=== PATIENT | female | born 1975 | race Caucasian/White ===

== ENCOUNTER 2017-06-12 21:58 | Emergency (ER) | payer MEDICAID ==
[~2017-06-12] VITALS: Ht 165.1 cm; Wt 140.6 kg
[~2017-06-12 21:58] MED LIST: AMOX-97 PO; FLUC200T45 PO; HYDR-3812 PO; IBUP800T26 PO; NAPR550T PO; OSLT75C PO; OXYC-272 PO; PRM25T PO; TRAM50TA2 PO; sprintec PO
--- NOTE | 2017-06-13 00:17 | ED Lower Extremity ---
General Chief Complaint: Lower Extremity Stated Complaint: R LEG NUMBNESS/BURNING Nursing Triage Note: PT REPORTS R HIP AND THIGH PAIN STARTING TWO DAYS AGO. PT DENIES ANY KNOWN INJURY. Nursing Sepsis Screen: No Definite Risk (EDMAR TORRES) History of Present Illness Time seen by provider: 00:12 Initial Comments Ms. Lindsey is a 42 year old female presenting with right lateral thigh numbness and burning. She has had episodes of burning and tingling of the thigh for 3-4 days; they last about 5 minutes, then go away and return frequently. The pain is 6/10 at its worst intensity and does not radiate. It has been severe enough to wake her from sleep; she has been sleeping on her left side to avoid pain. She has taken Ibuprofen which she says helps a bit. She denies any other pains, a history of this type of problem, recent injury, or any causes of compression of her thigh. Denies other pain/symptoms at this time. (EDMAR TORRES) Allergies and Home Medications Allergies Coded Allergies: NKANo Known Allergies (Unverified Allergy, Mild, 11/23/09) Home Medications Prednisone 20 Mg Tab, 20 MG PO DAILY, #4 Prescribed by: ENDER ESPINOZA on 06/13/17 0113 Constitutional: no symptoms reported EENTM: no symptoms reported Respiratory: no symptoms reported Cardiovascular: no symptoms reported Gastrointestinal: no symptoms reported Musculoskeletal: see HPI Skin: no symptoms reported (EDMAR TORRES) Psychiatric/Neurological: See HPI (ENDER SIMMONS MD) Past Plrvgsu-Yqsgtt-Tmfuzn Hx Patient Social History Alcohol Use: Denies Use Recreational Drug Use: No Smoking Status: Never a Smoker Recent Foreign Travel: No Contact w/Someone Who Travel: No Recent Infectious Disease Expo: No (EDMAR TORRES) Surgeries HX Surgeries: Yes (D&C with hysteroscopy) (EDMAR TORRES) Respiratory Hx Respiratory Disorders: No (EDMAR TORRES) Cardiovascular Hx Cardiac Disorders: No (EDMAR TORRES) Neurological Hx Neurological Disorders: No (EDMAR TORRES) Reproductive System Hx Reproductive Disorders: No (EDMAR TORRES) Genitourinary Hx Genitourinary Disorders: No (RENARD,EDMAR J MEDICAL STUDENT) Gastrointestinal Hx Gastrointestinal Disorders: No (EDMAR TORRES MEDICAL STUDENT) Endocrine Hx Endocrine Disorders: No (EDMAR TORRES MEDICAL STUDENT) HEENT HX ENT Disorders: No (EDMAR TORRES MEDICAL STUDENT) Cancer Hx Cancer: No (EDMAR TORRES MEDICAL STUDENT) Psychosocial Hx Psychiatric Problems: No (EDMAR TORRES MEDICAL STUDENT) Integumentary HX Skin/Integumentary Disorder: No (EDMAR TORRES MEDICAL HUMBERTO) Blood Transfusions Hx Blood Disorders: No (EDMAR TORRES MEDICAL STUDENT) Physical Exam Vital Signs Vital Sign - Last 12Hours 06/12/17 22:08 Temp 97.9 Pulse 98 Resp 18 B/P (MAP) 95/ Pulse Ox 97 (ENDER SIMMONS MD) Vital Signs Capillary Refill : Less Than 3 Seconds (EDMAR TORRES MEDICAL STUDENT) General Appearance: WD/WN, no apparent distress Cardiovascular: regular rate, rhythm, no gallop, no murmur Respiratory: chest non-tender, lungs clear, normal breath sounds, no respiratory distress, no accessory muscle use Gastrointestinal: normal bowel sounds, non tender, soft, no organomegaly Hips: bilateral hip non-tender, bilateral hip normal inspection, bilateral hip normal range of motion, bilateral hip no evidence of injury, right hip pain Legs: left leg non-tender, bilateral leg normal inspection, bilateral leg normal range of motion, bilateral leg no evidence of injury, right leg pain Knees: bilateral knee non-tender, bilateral knee normal inspection, bilateral knee normal range of motion, bilateral knee no evidence of injury Ankles: bilateral ankle non-tender, bilateral ankle normal inspection, bilateral ankle normal range of motion, bilateral ankle no evidence of injury Feet: bilateral foot non-tender, bilateral foot normal inspection, bilateral foot normal range of motion, bilateral foot no evidence of injury Neurologic/Psychiatric: no motor/sensory deficits, alert, normal mood/affect, oriented x 3 Skin: normal color, warm/dry (EDMAR TORRES MEDICAL STUDENT) Progress/Results/Core Measures Results/Orders Vital Signs/I&O Vital Sign - Last 12Hours 06/12/17 06/13/17 22:08 01:17 Temp 97.9 Pulse 98 0 Resp 18 0 B/P (MAP) 95/ Pulse Ox 97 0 (ENDER SIMMONS MD) Progress Note : Progress Note This patient was interviewed, seen, and examined along with Edmar Torres, MS4. I agree with his documentation with the following additions. Patient reports having this intermittent burning sensation in the right lateral thigh. It does seem to be somewhat dependent on position. Pain has been present for 3-4 days. She reports a history of chronic back pain. She has required steroid therapy in the past for treatment of this pain. She has had radicular symptoms in the past on the left, but radicular symptoms on the right are new in the description of pain is somewhat different. There was mild tenderness on the right lateral proximal thigh. No rash was present to suggest shingles. Symptoms were felt to most likely be radicular in nature. Patient was offered a short course of prednisone which she accepted. Exam: Gen.: Alert, oriented, obese HEENT: Normocephalic and atraumatic Lungs: Clear to auscultation bilaterally, normal effort Heart: Regular rate and rhythm without murmur Back: Mild tenderness to palpation over the lower lumbar spine Extremities: Right proximal lateral thigh tender to palpation. No pain with flexion or extension of the hip or rotation of the hip. No tenderness over the hip joint Skin: No rash or erythema (ENDER SIMMONS MD) Departure Impression Impression: Primary Impression: Paresthesia of right lower extremity Disposition: 01 HOME, SELF-CARE Condition: Stable Departure-Patient Inst. Decision time for Depature: 01:05 (ENDER SIMMONS MD) Referrals: ANEL IBARRA MD (PCP/Family) Primary Care Physician Patient Instructions: Paresthesias (DC) Add. Discharge Instructions: You may continue using ibuprofen up to 800 mg every 8 hours as needed for pain and inflammation. Use the prednisone as prescribed if not getting significant relief from ibuprofen. Follow-up with your primary care provider next week if not improving. Weight loss is important for reducing strain on your back and hips. Return to care if symptoms worsen. All discharge instructions reviewed with patient and/or family. Voiced understanding. Scripts Prednisone (Prednisone) 20 Mg Tab 20 MG PO DAILY, #4 TAB Prov: ENDER SIMMONS MD 06/13/17 EDMAR TORRES MEDICAL STUDENT Jun 13, 2017 00:17 ENDER SIMMONS MD Jun 13, 2017 01:13
[2017-06-13] MEDS ORDERED: PRD20T PO (01:13)
[2017-06-13 01:17] VITALS: BP 0/0
== END 2017-06-13 01:17 | disposition home or self-care (01) ==
LOC: EDUNIT# 21:58 → ER 22:00
DX: R20.2 Paresthesia of skin (principal)
CPT/HCPCS: 99283

== ENCOUNTER 2018-11-29 14:03 | Emergency (ER) | payer SELFPAY ==
[~2018-11-29] VITALS: Ht 165.1 cm; Wt 149.7 kg
[~2018-11-29 14:03] MED LIST changes: +ACHD5005 PO; -HYDR-3812 PO; +PRD20T PO
--- NOTE | 2018-11-29 14:27 | ED Lower Extremity ---
General Chief Complaint: Lower Extremity Stated Complaint: KNEE PAIN Source: patient Exam Limitations: no limitations History of Present Illness Date Seen by Provider: Nov 29, 2018 Time Seen by Provider: 14:24 Initial Comments To ER with reports of right knee pain for 2-3 days. She fell just prior to this a few days after getting out of car but did not land on her knee and had no pain initially. Over the following days she developed some knee pain. Onset: just prior to arrival Pain/Injury Location: right knee Method of Injury: fell Modifying Factors: Worse With Movement Allergies and Home Medications Allergies Coded Allergies: NKANo Known Allergies (Unverified Allergy, Mild, 11/23/09) Home Medications Prednisone 20 Mg Tab, 20 MG PO DAILY Prescribed by: ENDER ESPINOZA on 06/13/17 0113 Patient Home Medication List Home Medication List Reviewed: Yes Review of Systems Constitutional: see HPI EENTM: see HPI Respiratory: no symptoms reported Cardiovascular: no symptoms reported Genitourinary: no symptoms reported Musculoskeletal: see HPI Skin: no symptoms reported Psychiatric/Neurological: No Symptoms Reported (below the wrong finger) Past Yowomof-Ddfbes-Tigxiv Hx Past Medical History Surgeries: Yes (D&C with hysteroscopy) Respiratory: No Cardiac: No Neurological: No Reproductive Disorders: No Genitourinary: No Gastrointestinal: No Endocrine: No Cancer: No Psychosocial: No Integumentary: No Blood Disorders: No Physical Exam Vital Signs Vital Signs - First Documented 11/29/18 14:10 Temp 97.9 Pulse 76 Resp 18 B/P (MAP) 183/144 (157) Pulse Ox 99 O2 Delivery Room Air Capillary Refill : Height, Weight, BMI Height: 5'5.00" Weight: 310lbs. 2.0oz. 140.803372la; 56.4 BMI Method:Stated General Appearance: WD/WN, no apparent distress, obese HEENT: PERRL/EOMI, normal ENT inspection Neck: non-tender, full range of motion Respiratory: no respiratory distress, no accessory muscle use Hips: bilateral hip non-tender, bilateral hip normal inspection, bilateral hip normal range of motion Legs: bilateral leg non-tender, bilateral leg normal inspection, bilateral leg normal range of motion Knees: left knee pain, left knee soft tissue tenderness Ankles: bilateral ankle non-tender, bilateral ankle normal inspection, bilateral ankle normal range of motion Neurologic/Psychiatric: alert, normal mood/affect, oriented x 3 Skin: normal color, warm/dry Progress/Results/Core Measures Results/Orders My Orders Orders - JONATHAN HERRERA APRN Ketorolac Injection (Toradol Injection) (11/29/18 14:30) Amlodipine Tablet (Norvasc Tablet) (11/29/18 14:30) Knee, Right, 3 Views (11/29/18 14:23) Medications Given in ED Current Medications Medications Dose Ordered Sig/Jannet Route Start Time Stop Time Status Last Admin Dose Admin Amlodipine Besylate 5 mg ONCE ONCE PO 11/29/18 14:30 11/29/18 14:31 DC 11/29/18 14:30 5 MG Ketorolac Tromethamine 60 mg ONCE ONCE IM 11/29/18 14:30 11/29/18 14:31 DC 11/29/18 14:30 60 MG Vital Signs/I&O 11/29/18 14:10 Temp 97.9 Pulse 76 Resp 18 B/P (MAP) 183/144 (157) Pulse Ox 99 O2 Delivery Room Air Departure Impression Primary Impression: Sprain of knee Qualified Codes: S83.92XA - Sprain of unspecified site of left knee, initial encounter Additional Impression: Hypertension Qualified Codes: I10 - Essential (primary) hypertension Disposition: 01 HOME, SELF-CARE Condition: Stable Departure-Patient Inst. Decision time for Depature: 14:26 Referrals: ANEL IBARRA MD (PCP/Family) Primary Care Physician Patient Instructions: High Blood Pressure (DC), Knee Sprain (DC) Add. Discharge Instructions: 1. Follow-up with your doctor to address your knee pain. Return to ER for any worsening. All discharge instructions reviewed with patient and/or family. Voiced understanding. Scripts Naproxen (Naprosyn) 500 Mg Tablet 500 MG PO BID PRN for PAIN-MODERATE TO SEVERE, #14 TAB Prov: JONATHAN HERRERA APRN 11/29/18 JONATHAN HERRERA APRN Nov 29, 2018 14:27
[2018-11-29] MEDS ORDERED: KETOROLAC 60 MG/2 ML VIAL IM ONE (14:30)
[2018-11-29] MEDS ORDERED: amLODIPine 5 MG (NORVASC) TAB PO ONE (14:30)
--- NOTE | 2018-11-29 14:51 | Diagnostic Imaging Report ---
INDICATION: Pain and inability to bear weight on the right knee. TIME OF EXAM: 2:36 p.m. EXAMINATION: Three views of the right knee were obtained. FINDINGS: Alignment is normal. There is chondrocalcinosis of the medial and lateral compartments. Articular surfaces are smooth. No fracture, dislocation or effusion is seen. There are some mild patellofemoral degenerative changes. IMPRESSION: Chronic changes. No acute bony abnormality is detected. Dictated by: Dictated on workstation # [id number]
[2018-11-29] MEDS ORDERED: NAPR-1071 PO (14:58)
[2018-11-29 15:10] VITALS: BP 197/100
== END 2018-11-29 15:15 | disposition home or self-care (01) ==
LOC: EDUNIT# 14:03 → ER 14:04
DX: S83.92XA Sprain of unspecified site of left knee, initial encounter (principal); I10 Essential (primary) hypertension; Z79.52 Long term (current) use of systemic steroids; W19.XXXA Unspecified fall, initial encounter
CPT/HCPCS: 73562

== ENCOUNTER 2019-08-28 10:24 | Emergency (ER) | payer SELFPAY ==
[~2019-08-28] VITALS: Ht 165 cm; Wt 162.0 kg
[~2019-08-28 10:24] MED LIST changes: +NAPR-1071 PO
--- NOTE | 2019-08-28 10:49 | ED Cough/URI ---
General Chief Complaint: Cough/Cold/Flu Symptoms Stated Complaint: COUGH Nursing Triage Note: PT CO OF COLD COUGH AND FLU TYPE SX Sepsis Screen: No Definite Risk Source: patient Exam Limitations: no limitations History of Present Illness Date Seen by Provider: Aug 28, 2019 Time Seen by Provider: 10:35 Initial Comments Patient presents to ER by private conveyance with chief complaint of 2 weeks of cough, fever or 4 days ago and mild shortness of breath on exertion. No history of lung disease heart disease etc. No past medical history or taking any medications routinely. She saw her doctor who a week ago and put on Tessalon Perles which she said did not help. She's tried Robitussin another dymx-mjl-ynsqlys cough medicines. No sore throat runny nose ears underwater. No diarrhea. Allergies and Home Medications Allergies Coded Allergies: Wayne Known Allergies (Unverified Allergy, Mild, 11/23/09) Home Medications Albuterol Sulfate 1 Puff Puff, 2 PUFF INH Q4H PRN for COUGH 1 PUFF = 90 MCG Prescribed by: SHER HODGE on 08/28/19 1050 Azithromycin 250 Mg Tablet, 250 MG PO UD TAKE 2 TABLETS ON DAY ONE THEN TAKE 1 TABLET DAILY FOR FOUR MORE DAYS Prescribed by: SHER HODGE on 08/28/19 1127 Cefdinir 300 Mg Capsule, 300 MG PO BID Prescribed by: SHER HODGE on 08/28/19 1127 Guaifenesin/Codeine Phosphate 473 Ml Liquid, 10 ML PO Q6H PRN for COUGH Prescribed by: SHER HODGE on 08/28/19 1050 Naproxen 500 Mg Tablet, 500 MG PO BID PRN for PAIN-MODERATE TO SEVERE Prescribed by: JONATHAN HERRERA on 11/29/18 1458 Prednisone 20 Mg Tab, 20 MG PO DAILY Prescribed by: ENDRE ESPINOZA on 06/13/17 0113 Patient Home Medication List Home Medication List Reviewed: Yes Review of Systems Review of Systems Constitutional: chills, fever, malaise EENTM: No ear discharge, No ear pain Respiratory: cough; No phlegm; short of breath; No wheezing Cardiovascular: No chest pain, No edema Gastrointestinal: No abdominal pain, No constipation, No diarrhea Genitourinary: No discharge, No dysuria Past Qrrkeqc-Iooltc-Wrjdoa Hx Patient Social History Alcohol Use: Denies Use Recreational Drug Use: No Smoking Status: Never a Smoker 2nd Hand Smoke Exposure: No Recent Foreign Travel: No Contact w/Someone Who Travel: No Recent Infectious Disease Expo: No Recent Hopitalizations: No Physical Abuse: No Sexual Abuse: No Immunizations Up To Date Date of Influenza Vaccine: Aug 14, 2019 Past Medical History Surgeries: Yes (D&C with hysteroscopy) Respiratory: No Cardiac: No Neurological: No : No (IRREGULAR PERIODS) Reproductive Disorders: No Genitourinary: No Gastrointestinal: No Endocrine: No Cancer: No Psychosocial: No Integumentary: No Blood Disorders: No Physical Exam Vital Signs - First Documented 08/28/19 08/28/19 10:30 10:41 Temp 36.7 Pulse 104 Resp 18 B/P (MAP) 146/120 (129) Pulse Ox 97 O2 Delivery Room Air Capillary Refill : Less Than 3 Seconds Height: 5'5.00" Weight: 330lbs. 0oz. 149.872759xq; 59.00 BMI Method:Stated General Appearance: WD/WN, mild distress Eyes: Bilateral Eye Normal Inspection, Bilateral Eye PERRL, Bilateral Eye EOMI HEENT: PERRL/EOMI, pharynx normal Neck: non-tender, full range of motion Respiratory: lungs clear, normal breath sounds, no respiratory distress, no accessory muscle use, decreased breath sounds, other (nonproductive cough) Cardiovascular: normal peripheral pulses, regular rate, rhythm, tachycardia (100) Progress/Results/Core Measures Suspected Sepsis Recent Fever Within 48 Hours: No Infection Criteria Present: None New/Unexplained Altered Menta: No Sepsis Screen: No Definite Risk SIRS Temperature: Pulse: 104 Respiratory Rate: 18 Laboratory Tests 08/28/19 10:50: White Blood Count 8.7 Blood Pressure 146 /120 Mean: 129 Laboratory Tests 08/28/19 10:50: Creatinine 0.76, Platelet Count 338 Results/Orders Lab Results Laboratory Tests Test 08/28/19 10:50 Range/Units White Blood Count 8.7 4.3-11.0 10^3/uL Red Blood Count 4.64 4.35-5.85 10^6/uL Hemoglobin 13.5 11.5-16.0 G/DL Hematocrit 41 35-52 % Mean Corpuscular Volume 89 80-99 FL Mean Corpuscular Hemoglobin 29 25-34 PG Mean Corpuscular Hemoglobin Concent 33 32-36 G/DL Red Cell Distribution Width 14.3 10.0-14.5 % Platelet Count 338 130-400 10^3/uL Mean Platelet Volume 10.3 7.4-10.4 FL Neutrophils (%) (Auto) 71 42-75 % Lymphocytes (%) (Auto) 19 12-44 % Monocytes (%) (Auto) 7 0-12 % Eosinophils (%) (Auto) 2 0-10 % Basophils (%) (Auto) 1 0-10 % Neutrophils # (Auto) 6.2 1.8-7.8 X 10^3 Lymphocytes # (Auto) 1.6 1.0-4.0 X 10^3 Monocytes # (Auto) 0.6 0.0-1.0 X 10^3 Eosinophils # (Auto) 0.2 0.0-0.3 10^3/uL Basophils # (Auto) 0.1 0.0-0.1 10^3/uL Sodium Level 136 135-145 MMOL/L Potassium Level 3.8 3.6-5.0 MMOL/L Chloride Level 107 98-107 MMOL/L Carbon Dioxide Level 21 21-32 MMOL/L Anion Gap 8 5-14 MMOL/L Blood Urea Nitrogen 11 7-18 MG/DL Creatinine 0.76 0.60-1.30 MG/DL Estimat Glomerular Filtration Rate > 60 BUN/Creatinine Ratio 14 Glucose Level 119 H 70-105 MG/DL Calcium Level 9.3 8.5-10.1 MG/DL C-Reactive Protein High Sensitivity 3.78 H 0.00-0.50 MG/DL My Orders Orders - SHER HODGE Influenza A And B Antigens (08/28/19 10:37) Chest Pa/Lat (2 View) (08/28/19 10:41) Cbc With Automated Diff (08/28/19 10:41) Basic Metabolic Panel (08/28/19 10:41) Hs C Reactive Protein (08/28/19 10:41) Vital Signs/I&O 08/28/19 08/28/19 10:30 10:41 Temp 36.7 Pulse 104 Resp 18 B/P (MAP) 146/120 (129) Pulse Ox 97 O2 Delivery Room Air Capillary Refill : Less Than 3 Seconds Blood Pressure Mean: 129 Progress Note : Time: 10:46 Progress Note Basic labs, influenza and chest x-ray. Viral bronchitis/upper respiratory tract infection versus pneumonia given his been going on for 2 weeks with fever. She is afebrile presently. We did try putting her on bronchodilator for her cough as well as codeine. Diagnostic Imaging Diagonstic Imaging: Xray Plain Films/CT/US/NM/MRI: chest (1v) Comments NAME: DEJAN ALEXANDER [facility] REC#: [id number] PT STATUS: REG ER : 1975 PHYSICIAN: SHER HODGE MD ADMIT DATE: 08/28/19/ER Draft Date of Exam:08/28/19 CHEST PA/LAT (2 VIEW) INDICATION: Cough. TIME OF EXAM: 10:58 AM No prior studies are available for comparison. FINDINGS: The heart size is normal. There is some mild fullness in the right perihilar region. Perihilar infiltrate is suspected. No parenchymal consolidation is seen. There is no effusion or pneumothorax. IMPRESSION: Findings suspect for mild right perihilar pneumonia. Dictated on workstation # [id number] Dict: 08/28/19 1116 Trans: 08/28/19 [facility]3 [id number] Interpreted by: CHILO BHATTI MD Electronically signed by: Reviewed: Reviewed by Me Departure Impression Primary Impression: Pneumonia Qualified Codes: J18.1 - Lobar pneumonia, unspecified organism Disposition: 01 HOME, SELF-CARE Condition: Stable Departure-Patient Inst. Decision time for Depature: 11:26 Referrals: [facility] (PCP) Primary Care Physician Patient Instructions: Pneumonia, Adult (DC) Add. Discharge Instructions: 2 puffs of albuterol every 4 hours as needed for coughing or wheezing/shortness of breath. Cough syrup every 6 hours as needed for breakthrough coughing. Drink plenty of fluids and use humidifiers, vapor rubs, hot tea with honey and lemon etc. All discharge instructions reviewed with patient and/or family. Voiced understanding. Scripts Azithromycin (Azithromycin) 250 Mg Tablet 250 MG PO UD, #6 TAB 0 Refills TAKE 2 TABLETS ON DAY ONE THEN TAKE 1 TABLET DAILY FOR FOUR MORE DAYS Prov: SHER HODGE 08/28/19 Cefdinir (Cefdinir) 300 Mg Capsule 300 MG PO BID for 7 Days, #14 CAP 0 Refills Prov: SHER HODGE 08/28/19 Inhaler, Assist Devices (E-Z Spacer) 1 Each Spacer EACH MC for Cough, #1 Prov: SHER HODGE 08/28/19 Albuterol Sulfate (VENTOLIN HFA) 1 Puff Puff 2 PUFF INH Q4H PRN for COUGH, #1 EA 0 Refills 1 PUFF = 90 MCG Prov: SHER HODGE 08/28/19 Guaifenesin/Codeine Phosphate (Guaifenesin-Codeine Syrup) 473 Ml Liquid 10 ML PO Q6H PRN for COUGH, #473 EA 0 Refills Prov: SHER HODGE 08/28/19 SHER HODGE Aug 28, 2019 10:49
[2019-08-28] MEDS ORDERED: GUAI473L PO (10:50)
[2019-08-28] MEDS ORDERED: INHA1INH59 MC (10:50)
[2019-08-28] MEDS ORDERED: RT-ALBUINH INH (10:50)
[2019-08-28 10:58] LABS: BASOPHILS # (AUTO) 0.1 10^3/uL (0.0-0.1); BASOPHILS % (AUTO) 1 % (0-10); EOSINOPHILS # (AUTO) 0.2 10^3/uL (0.0-0.3); EOSINOPHILS % (AUTO) 2 % (0-10); HEMATOCRIT 41 % (35-52); HEMOGLOBIN 13.5 G/DL (11.5-16.0); LYMPHOCYTES # (AUTO) 1.6 X 10^3 (1.0-4.0); LYMPHOCYTES % (AUTO) 19 % (12-44); MEAN CORPUSCULAR HEMOGLOBIN 29 PG (25-34); MEAN CORPUSCULAR HGB CONC 33 G/DL (32-36); MEAN CORPUSCULAR VOLUME 89 FL (80-99); MEAN PLATELET VOLUME 10.3 FL (7.4-10.4); MONOCYTES # (AUTO) 0.6 X 10^3 (0.0-1.0); MONOCYTES % (AUTO) 7 % (0-12); NEUTROPHILS # (AUTO) 6.2 X 10^3 (1.8-7.8); NEUTROPHILS % (AUTO) 71 % (42-75); PLATELET COUNT 338 10^3/uL (130-400); RED CELL DISTRIBUTION WIDTH 14.3 % (10.0-14.5); WHITE BLOOD COUNT 8.7 10^3/uL (4.3-11.0)
[2019-08-28 11:16] LABS: BUN/CREATININE RATIO 14; CALCIUM 9.3 MG/DL (8.5-10.1); CARBON DIOXIDE 21 MMOL/L (21-32); CHLORIDE 107 MMOL/L (98-107); CREATININE SERUM 0.76 MG/DL (0.60-1.30); GFR ESTIMATED > 60; GLUCOSE 119 MG/DL (70-105); POTASSIUM 3.8 MMOL/L (3.6-5.0); SODIUM 136 MMOL/L (135-145)
--- NOTE | 2019-08-28 11:23 | Diagnostic Imaging Report ---
INDICATION: Cough. TIME OF EXAM: 10:58 AM No prior studies are available for comparison. FINDINGS: The heart size is normal. There is some mild fullness in the right perihilar region. Perihilar infiltrate is suspected. No parenchymal consolidation is seen. There is no effusion or pneumothorax. IMPRESSION: Findings suspect for mild right perihilar pneumonia. Dictated by: Dictated on workstation # [id number]
[2019-08-28] MEDS ORDERED: CEFD300C3 PO (11:27)
[2019-08-28] MEDS ORDERED: AZIT250T12 PO (11:27)
[2019-08-28 11:53] VITALS: BP 146/120
== END 2019-08-28 11:53 | disposition home or self-care (01) ==
LOC: EDUNIT# 10:24 → ER 10:26
DX: J18.9 Pneumonia, unspecified organism (principal); Z79.52 Long term (current) use of systemic steroids
CPT/HCPCS: 36415; 71046; 80048; 85025; 86141; 87804

== ENCOUNTER 2021-06-02 17:00 | Emergency (ER) | payer SELFPAY ==
[~2021-06-02] VITALS: Ht 165 cm; Wt 172.0 kg
[~2021-06-02 17:00] MED LIST changes: +AZIT250T12 PO; +CEFD300C3 PO; +GUAI473L PO; +INHA1INH59 MC; +RT-ALBUINH INH
[2021-06-02] MEDS ORDERED: fentaNYL INJ 100 MCG/2 ML AMP IVP ONE (18:00)
[2021-06-02] MEDS ORDERED: KETOROLAC 30 MG/ML VIAL IVP ONE (18:00)
[2021-06-02] MEDS ORDERED: NS IV 1000 ML 1,000 ML IV SCH (18:00)
--- NOTE | 2021-06-02 18:02 | ED Respiratory ---
General Chief Complaint: Respiratory Problems Stated Complaint: SOB, WEAKNESS IN LEGS Nursing Triage Note: PT PRESENTS TO ED FOR SHORTNESS OF BREATH AND BILATERAL LEG PAIN X'S THREE DAYS. PER PT SHE DID A HOME COVID TEST AND IT SHOWED POSITIVE. PT IS CONCERNED BLOOD CLOTS RUN IN HER FAMILY AND ITS THE BACK OF HER LEGS THAT HURT. PT AMB. TO ROOM 07 WITH MILD SHORTNESS OF BREATH. PT IS ALSO STATING SHE IS HAVING CHEST PRESSURE LIKE WHEN SHE HAD PNEUMONIA. Source: patient Exam Limitations: no limitations History of Present Illness Date Seen by Provider: Jun 02, 2021 Time Seen by Provider: 19:06 Initial Comments to ER with general weakness in her legs shortness of breath and pressure in her chest. Symptoms began on Sunday05/29/21. She received her first Pfizer vaccine on 05/25/2021 Timing/Duration: constant Severity: moderate Associated Symptoms: cough, shortness of breath Allergies and Home Medications Allergies Coded Allergies: NKANo Known Allergies (Unverified Allergy, Mild, 11/23/09) Home Medications Albuterol Sulfate 1 Puff Puff, 2 PUFF INH Q4H PRN for COUGH 1 PUFF = 90 MCG Prescribed by: SHER HODGE on 08/28/19 1050 Azithromycin 250 Mg Tablet, 250 MG PO UD TAKE 2 TABLETS ON DAY ONE THEN TAKE 1 TABLET DAILY FOR FOUR MORE DAYS Prescribed by: SHER HODGE on 08/28/19 1127 Cefdinir 300 Mg Capsule, 300 MG PO BID Prescribed by: SHER HODGE on 08/28/19 1127 Guaifenesin/Codeine Phosphate 473 Ml Liquid, 10 ML PO Q6H PRN for COUGH Prescribed by: SHER HODGE on 08/28/19 1050 Naproxen 500 Mg Tablet, 500 MG PO BID PRN for PAIN-MODERATE TO SEVERE Prescribed by: JONATHAN HERRERA on 11/29/18 1458 Prednisone 20 Mg Tab, 20 MG PO DAILY Prescribed by: ENDER ESPINOZA on 06/13/17 0113 Patient Home Medication List Home Medication List Reviewed: Yes Review of Systems Review of Systems Constitutional: see HPI EENTM: see HPI Respiratory: no symptoms reported Cardiovascular: no symptoms reported Genitourinary: no symptoms reported Musculoskeletal: no symptoms reported Skin: no symptoms reported Psychiatric/Neurological: No Symptoms Reported Hematologic/Lymphatic: No Symptoms Reported Immunological/Allergic: no symptoms reported Past Pihvfht-Rvryxf-Pyqnxk Hx Patient Social History Tobacco Use?: No Substance use?: Yes Substance type: Marijuana Substance frequency: Couple times a week Alcohol Use?: No Pt feels they are or have been: No Immunizations Up To Date First/Initial COVID19 Vaccinat: 05/25/2021 COVID19 Vaccine Appeals Officer: PFIZER Past Medical History Surgeries: Yes (D&C with hysteroscopy) Respiratory: No Cardiac: No Neurological: No Reproductive Disorders: No Genitourinary: No Gastrointestinal: No Endocrine: No Cancer: No Psychosocial: No Integumentary: No Blood Disorders: No Physical Exam Vital Signs - First Documented 06/02/21 17:31 Temp 37.3 Pulse 104 Resp 22 B/P (MAP) 141/101 (114) O2 Delivery Room Air Capillary Refill : Less Than 3 Seconds Height: 5'5.00" Weight: 330lbs. 0oz. 149.193927hc; 63.00 BMI Method:Stated General Appearance: WD/WN, obese, other (No distress alert and oriented very pleasant normal respiratory rate oxygen saturation 97 to 99% on room air. Morbidly obese at BMI of 63. Because of this I discussed with her getting Regeneron infusion tomorrow. She would like to proceed with getting this. I discussed with her the emergency use authorization nature of it and she would still like to proceed. ) Eyes: Bilateral Eye Normal Inspection, Bilateral Eye PERRL, Bilateral Eye EOMI HEENT: PERRL/EOMI, normal ENT inspection Neck: non-tender, full range of motion Respiratory: normal breath sounds, no respiratory distress, no accessory muscle use Cardiovascular: regular rate, rhythm, no murmur Gastrointestinal: normal bowel sounds, non tender, soft Neurologic/Psychiatric: alert, normal mood/affect, oriented x 3 Skin: normal color, warm/dry Progress/Results/Core Measures Suspected Sepsis SIRS Temperature: Pulse: 104 Respiratory Rate: 22 Laboratory Tests 06/02/21 18:03: White Blood Count 5.2 Blood Pressure 141 /101 Mean: 114 Laboratory Tests 06/02/21 18:03: Creatinine 0.89, Platelet Count 300, Total Bilirubin 0.4 Results/Orders Lab Results Laboratory Tests Test 06/02/21 17:34 06/02/21 18:03 Range/Units SARS-CoV-2 RNA (RT-PCR) Detected H Not Detecte White Blood Count 5.2 4.3-11.0 10^3/uL Red Blood Count 4.57 3.80-5.11 10^6/uL Hemoglobin 13.9 11.5-16.0 g/dL Hematocrit 43 35-52 % Mean Corpuscular Volume 93 80-99 fL Mean Corpuscular Hemoglobin 30 25-34 pg Mean Corpuscular Hemoglobin Concent 33 32-36 g/dL Red Cell Distribution Width 14.5 10.0-14.5 % Platelet Count 300 130-400 10^3/uL Mean Platelet Volume 10.2 9.0-12.2 fL Immature Granulocyte % (Auto) 0 % Neutrophils (%) (Auto) 60 42-75 % Lymphocytes (%) (Auto) 31 12-44 % Monocytes (%) (Auto) 8 0-12 % Eosinophils (%) (Auto) 1 0-10 % Basophils (%) (Auto) 1 0-10 % Neutrophils # (Auto) 3.1 1.8-7.8 10^3/uL Lymphocytes # (Auto) 1.6 1.0-4.0 10^3/uL Monocytes # (Auto) 0.4 0.0-1.0 10^3/uL Eosinophils # (Auto) 0.0 0.0-0.3 10^3/uL Basophils # (Auto) 0.0 0.0-0.1 10^3/uL Immature Granulocyte # (Auto) 0.0 0.0-0.1 10^3/uL D-Dimer 1.12 H 0.00-0.49 UG/ML Sodium Level 140 135-145 MMOL/L Potassium Level 3.7 3.6-5.0 MMOL/L Chloride Level 105 98-107 MMOL/L Carbon Dioxide Level 24 21-32 MMOL/L Anion Gap 11 5-14 MMOL/L Blood Urea Nitrogen 10 7-18 MG/DL Creatinine 0.89 0.60-1.30 MG/DL Estimat Glomerular Filtration Rate > 60 BUN/Creatinine Ratio 11 Glucose Level 103 70-105 MG/DL Calcium Level 8.5 8.5-10.1 MG/DL Corrected Calcium 8.7 8.5-10.1 MG/DL Magnesium Level 2.0 1.6-2.4 MG/DL Total Bilirubin 0.4 0.1-1.0 MG/DL Aspartate Amino Transf (AST/SGOT) 60 H 5-34 U/L Alanine Aminotransferase (ALT/SGPT) 113 H 0-55 U/L Alkaline Phosphatase 55 40-136 U/L C-Reactive Protein High Sensitivity 0.50 0.00-0.50 MG/DL B-Type Natriuretic Peptide < 10.0 <100.0 PG/ML Total Protein 7.5 6.4-8.2 GM/DL Albumin 3.8 3.2-4.5 GM/DL Serum Test, Qualitative NEGATIVE NEGATIVE My Orders Orders - JONATHAN HERRERA APRN Covid 19 Inhouse Test (06/02/21 17:34) Cbc With Automated Diff (06/02/21 17:34) Hs C Reactive Protein (06/02/21 17:34) Fibrin Degradation Products (06/02/21 17:34) Comprehensive Metabolic Panel (06/02/21 17:34) BNP (06/02/21 17:34) Magnesium (06/02/21 17:34) Ed Iv/Invasive Line Start (06/02/21 17:34) Hcg,Qualitative Serum (06/02/21 17:34) Ns Iv 1000 Ml (Sodium Chloride 0.9%) (06/02/21 18:00) Ketorolac Injection (Toradol Injection) (06/02/21 18:00) Fentanyl Inj (Sublimaze Injection) (06/02/21 18:00) Ua Culture If Indicated (06/02/21 17:48) Ct Angio Chest W (06/02/21 18:56) Iohexol Injection (Omnipaque 350 Mg/Ml 1 (06/02/21 19:15) Received Contrast (Hold Metformin- Contr (06/02/21 19:15) Sodium Chloride Flush (Catheter Flush Sy (06/02/21 19:15) Ns (Ivpb) (Sodium Chloride 0.9% Ivpb Bag (06/02/21 19:15) Ondansetron Injection (Zofran Injectio (06/02/21 20:00) Medications Given in ED Current Medications Medications Dose Ordered Sig/Jannet Route Start Time Stop Time Status Last Admin Dose Admin Iohexol 100 ml ONCE ONCE IV 06/02/21 19:15 06/02/21 19:16 DC 06/02/21 19:49 88 ML Ondansetron HCl 4 mg STK-MED ONCE .ROUTE 06/02/21 20:00 06/02/21 20:03 DC 06/02/21 20:03 8 MG Sodium Chloride 10 ml NEEDED PRN IV 06/02/21 19:15 06/02/21 19:49 10 ML Sodium Chloride 100 ml ONCE ONCE IV 06/02/21 19:15 06/02/21 19:16 DC 06/02/21 19:49 80 ML Vital Signs/I&O 06/02/21 17:31 Temp 37.3 Pulse 104 Resp 22 B/P (MAP) 141/101 (114) O2 Delivery Room Air Capillary Refill : Less Than 3 Seconds Blood Pressure Mean: 114 Departure Communication (Admissions) CT shows mild mediastinal lymphadenopathy no pulmonary embolism. I have arranged for her to receive Regeneron tomorrow Impression Primary Impression: COVID-19 Disposition: 01 HOME, SELF-CARE Condition: Stable Departure-Patient Inst. Decision time for Depature: 19:08 Referrals: [facility] [place] (PCP) Primary Care Physician ANEL IBARRA MD (Family) Primary Care Physician Patient Instructions: COVID-19 ED Add. Discharge Instructions: 1. Take a baby aspirin daily. The hospital will call you tomorrow morning with a time at which you should arrive for the Regeneron infusion. All discharge instructions reviewed with patient and/or family. Voiced understanding. JONATHAN HERRERA APRN Jun 02, 2021 18:02
[2021-06-02 18:22] LABS: BASOPHILS % (AUTO) 1 % (0-10); EOSINOPHILS % (AUTO) 1 % (0-10); HEMATOCRIT 43 % (35-52); HEMOGLOBIN 13.9 g/dL (11.5-16.0); LYMPHOCYTES # (AUTO) 1.6 10^3/uL (1.0-4.0); LYMPHOCYTES % (AUTO) 31 % (12-44); MEAN CORPUSCULAR HEMOGLOBIN 30 pg (25-34); MEAN CORPUSCULAR HGB CONC 33 g/dL (32-36); MEAN CORPUSCULAR VOLUME 93 fL (80-99); MEAN PLATELET VOLUME 10.2 fL (9.0-12.2); MONOCYTES # (AUTO) 0.4 10^3/uL (0.0-1.0); MONOCYTES % (AUTO) 8 % (0-12); NEUTROPHILS # (AUTO) 3.1 10^3/uL (1.8-7.8); NEUTROPHILS % (AUTO) 60 % (42-75); PLATELET COUNT 300 10^3/uL (130-400); WHITE BLOOD COUNT 5.2 10^3/uL (4.3-11.0)
[2021-06-02 18:32] LABS: ALBUMIN 3.8 GM/DL (3.2-4.5); CHLORIDE 105 MMOL/L (98-107); POTASSIUM 3.7 MMOL/L (3.6-5.0); SODIUM 140 MMOL/L (135-145)
[2021-06-02 18:33] LABS: CALCIUM 8.5 MG/DL (8.5-10.1)
[2021-06-02 18:34] LABS: GLUCOSE 103 MG/DL (70-105); TOTAL PROTEIN 7.5 GM/DL (6.4-8.2)
[2021-06-02 18:35] LABS: CARBON DIOXIDE 24 MMOL/L (21-32)
[2021-06-02 18:36] LABS: BILIRUBIN,TOTAL 0.4 MG/DL (0.1-1.0)
[2021-06-02 18:38] LABS: ALKALINE PHOSPHATASE 55 U/L (40-136); CREATININE SERUM 0.89 MG/DL (0.60-1.30); GFR ESTIMATED > 60
[2021-06-02 18:39] LABS: BUN/CREATININE RATIO 11
[2021-06-02 18:41] LABS: ALANINE AMINOTRANSFERASE 113 U/L (0-55)
[2021-06-02] MEDS ORDERED: IOHEXOL 350 MG/ML 100 ML (OMNIPAQUE 350) VIAL IV ONE (19:15)
[2021-06-02] MEDS ORDERED: NS 100 ML (IVPB) BAG IV ONE (19:15)
[2021-06-02] MEDS ORDERED: CATHETER FLUSH 10 ML SYR IV PRN (19:15)
[2021-06-02] MEDS ORDERED: HOLD METFORMIN - RECEIVED CONTRAST 20 ML VIAL IV SCH (19:15)
[2021-06-02] MEDS ORDERED: ONDANSETRON 4 MG/2 ML (SDV) Z0FRAN ONE (20:00)
--- NOTE | 2021-06-02 21:07 | Diagnostic Imaging Report ---
Clinical indication: Patient Covid positive with elevated d-dimer. Exam: CT angiogram of the chest performed with 88 cc Omnipaque 350 IV contrast. Coronal and oblique MIP images of the vasculature were created to better evaluate anatomy. Auto Exposure Controls were utilized during the CT exam to meet ALARA standards for radiation dose reduction. Comparison: Chest x-ray dated 08/28/2019. Findings: There is no evidence of pulmonary embolism. There is no thoracic aortic dissection or aneurysm. Lungs are clear. There is no pleural effusion pneumothorax. Mildly prominent lymph nodes in the mediastinal region. Marker lymph node in the precarinal region measures roughly 11 mm x 23 mm in AP x transverse dimensions. There is no significant lymphadenopathy in the hilar or axillary regions. Mediastinal structures and heart shows no significant abnormality. The visualized portions of the upper abdominal structures are unremarkable. There are hypertrophic spurs involving the thoracic spine. Impression: 1: Nonspecific prominent mediastinal lymph nodes. Lungs are clear. 2: Otherwise unremarkable CT angiogram of the chest with no evidence of pulmonary embolism. There is no thoracic aortic aneurysm or dissection. Dictated by: Dictated on workstation # [id number]
[2021-06-02 21:20] VITALS: BP 135/100
== END 2021-06-02 21:20 | disposition home or self-care (01) ==
LOC: EDUNIT# 17:00 → ER 17:02
DX: U07.1 COVID-19 (principal); R59.0 Localized enlarged lymph nodes; E66.9 Obesity, unspecified; Z68.44 Body mass index [BMI] 60.0-69.9, adult
CPT/HCPCS: 36415; 71275; 80053; 83735; 83880; 84703; 85025; 85379; 86141; 87636

== ENCOUNTER 2021-06-03 12:12 | Outpatient (CLI) | payer SELFPAY ==
[~2021-06-03] VITALS: Ht 167.6 cm; Wt 177.8 kg
[2021-06-03 12:05] VITALS: BP 160/82
[2021-06-03] MEDS ORDERED: CASIRIVIMAB/IMDEVIMAB 1,200 MG in NS (IVPB) 250 ML IV ONE (12:30)
[2021-06-03] MEDS ORDERED: EPINEPHrine INJECTION 1 MG/ML AMP IM PRN (12:30)
[2021-06-03] MEDS ORDERED: diphenhydrAMINE 50 MG/ML INJ (BENADRYL) IV PRN (12:30)
[2021-06-03 13:48] VITALS: BP 173/97
== END 2021-06-03 14:43 ==
LOC: INFUSION 12:12
PROVIDERS: ATTEND Nurse Practitioner Family
DX: Z23 Encounter for immunization (principal); U07.1 COVID-19

== ENCOUNTER 2022-11-22 17:30 | Emergency (ER) | payer OTHER ==
[~2022-11-22] VITALS: Ht 167 cm; Wt 187.3 kg
[2022-11-22 18:33] LABS: BASOPHILS # (AUTO) 0.1 10^3/uL (0.0-0.1); BASOPHILS % (AUTO) 1 % (0-10); EOSINOPHILS # (AUTO) 0.1 10^3/uL (0.0-0.3); EOSINOPHILS % (AUTO) 2 % (0-10); HEMATOCRIT 37 % (35-52); HEMOGLOBIN 12.3 g/dL (11.5-16.0); LYMPHOCYTES % (AUTO) 25 % (12-44); MEAN CORPUSCULAR HEMOGLOBIN 30 pg (25-34); MEAN CORPUSCULAR HGB CONC 33 g/dL (32-36); MEAN CORPUSCULAR VOLUME 91 fL (80-99); MEAN PLATELET VOLUME 10.3 fL (9.0-12.2); MONOCYTES # (AUTO) 0.5 10^3/uL (0.0-1.0); MONOCYTES % (AUTO) 6 % (0-12); NEUTROPHILS # (AUTO) 5.3 10^3/uL (1.8-7.8); NEUTROPHILS % (AUTO) 66 % (42-75); PLATELET COUNT 337 10^3/uL (130-400); WHITE BLOOD COUNT 8.1 10^3/uL (4.3-11.0)
[2022-11-22 18:39] LABS: PROTHROMBIN TIME PATIENT 13.7 SEC (12.2-14.7)
[2022-11-22 18:42] LABS: ALBUMIN 3.7 GM/DL (3.2-4.5); BILIRUBIN,TOTAL 0.3 MG/DL (0.1-1.0); CALCIUM 8.8 MG/DL (8.5-10.1); CREATININE SERUM 0.77 MG/DL (0.60-1.30); POTASSIUM 3.5 MMOL/L (3.6-5.0); TOTAL PROTEIN 7.5 GM/DL (6.4-8.2)
[2022-11-22] MEDS ORDERED: ONDA8TAB13 PO (18:46)
[2022-11-22] MEDS ORDERED: NORE0.3536 PO (18:46)
--- NOTE | 2022-11-22 18:50 | ED GU-Female ---
General Chief Complaint: - Reproductive Stated Complaint: EXCESSIVE VAGINAL BLEEDING,CRAMPING,DIZZY Nursing Triage Note: PT PRESENTS TO ED VIA POV FROM HOME WITH COMPLAINTS OF INCREASED VAGINAL BLEEDING AND CRAMPING STARTING 11/09/22. PT REPORTS LARGE BLOOD CLOTS AND GOING THROUGH A COUPLE PLADS AN HOUR. PT REPORTS DIZZINESS IN THE MORNING. Source: patient History of Present Illness Date Seen by Provider: Nov 22, 2022 Time Seen by Provider: 18:22 Initial Comments PT ARRIVES VIA POV FROM HOME C/O HEAVY VAGINAL BLEEDING PT HAS CHRONIC IRREGULAR AND HEAVY PERIODS STATES SHE HAS NOT HAD A PERIOD IN A COUPLE OF MONTHS, THEN SPOTTED X 1 WEEK, AND SINCE Sunday11/17/22, SHE HAS HAD HEAVY BLEEDING WITH CLOTS. STATES SHE HAS USED 15 OVERNIGHT PADS TODAY C/O SOME DIZZINESS, ONLY IN THE MORNINGS. NO DIZZINESS NOW HAS HAD SOME CRAMPING, BUT NOT NOW. NO NAUSEA/VOMITING NO FEVER NO URINARY SYMPTOMS HAS NOT SOUGHT CARE UNTIL TODAY SYMPTOMS NO DIFFERENT TODAY IN THE PAST, SHE WAS SEEING DR. ROSAS AND HAS HAD A D&C ABOUT 5 YEARS AGO FOR THIS PROBLEM. SHE HAS NOT ATTEMPTED TO FOLLOW UP WITH HIM AT ANY TIME--SAW HIM OVER A YEAR AGO. SHE HAS NOT ATTEMPTED TO ESTABLISH WITH NEW SAFETY PROFESSIONAL DR. ROSAS IS RETIRING. SHE IS NOT ON CONTROL AND HAS NOT HAD A TUBAL LIGATION. PCP: [facility] Allergies and Home Medications Allergies Coded Allergies: hydrocodone (Verified Allergy, Unknown, 06/03/21) Patient Home Medication List Home Medication List Reviewed: Yes Albuterol Sulfate (Ventolin Hfa) 1 Puff Puff, 2 PUFF INH Q4H PRN for COUGH Prescribed by: SHER HODGE on 08/28/19 1050 Azithromycin (Azithromycin) 250 Mg Tablet, 250 MG PO UD Prescribed by: SHER HODGE on 08/28/19 112 Cefdinir (Cefdinir) 300 Mg Capsule, 300 MG PO BID Prescribed by: SHER HODGE on 08/28/19 1127 Guaifenesin/Codeine Phosphate (Guaifenesin-Codeine Syrup) 473 Ml Liquid, 10 ML PO Q6H PRN for COUGH Prescribed by: SHER HODGE on 08/28/19 1050 Inhaler, Assist Devices (E-Z Spacer) 1 Each Spacer, EACH [facility], (DME) Prescribed by: SHER HODGE on 08/28/19 1050 Naproxen (Naprosyn) 500 Mg Tablet, 500 MG PO BID PRN for PAIN-MODERATE TO SEVERE Prescribed by: JONATHAN HERRERA on 11/29/18 1458 Norethindrone (Ortho Micronor) 0.35 Mg Tablet, 4 TAB PO DAILY Prescribed by: RADHA HUERTAS on 11/22/22 184 Ondansetron (Ondansetron Odt) 8 Mg Tab.rapdis, 8 MG PO Q6H Prescribed by: RADHA HUERTAS on 11/22/22 184 Prednisone (Prednisone) 20 Mg Tab, 20 MG PO DAILY Prescribed by: ENDER ESPINOZA on 06/13/17 0113 Review of Systems Review of Systems Constitutional: see HPI, dizziness Respiratory: no symptoms reported Cardiovascular: no symptoms reported Gastrointestinal: see HPI; No diarrhea, No nausea, No vomiting Genitourinary: see HPI : No Musculoskeletal: no symptoms reported Skin: no symptoms reported Psychiatric/Neurological: No Symptoms Reported Past Frubokf-Oyggkn-Nptdve Hx Patient Social History Tobacco Use?: No Use of E-Cig and/or Vaping [place]: Never a User Substance use?: Yes Substance type: Marijuana Alcohol Use?: Yes Alcohol Frequency: Once in a while Pt feels they are or have been: No Immunizations Up To Date First/Initial COVID19 Vaccinat: 05/25/2021 Second COVID19 Vaccination [place]: 05/25/2021 Third COVID19 Vaccination Date: 05/25/2021 Past Medical History Surgeries: Yes (D&C with hysteroscopy) Respiratory: No Cardiac: No Neurological: No Reproductive Disorders: Yes (DUB/MENORRHAGIA) Female Reproductive Disorders: Menstrual Problems Genitourinary: No Gastrointestinal: No Musculoskeletal: No Endocrine: Yes (OBESITY) HEENT: No Cancer: No Psychosocial: No Integumentary: No Blood Disorders: No Physical Exam Vital Signs Vital Signs - First Documented 11/22/22 11/22/22 17:49 19:20 Temp 36.7 Pulse 95 Resp 16 B/P (MAP) 170/78 (108) Pulse Ox 96 O2 Delivery Room Air Capillary Refill : Less Than 3 Seconds Height, Weight, BMI Height: 5'5.00" Weight: 330lbs. 0oz. 149.589927rg; 67.00 BMI Method:Stated General Appearance: WD/WN, no apparent distress, obese Cardiovascular: regular rate, rhythm, no murmur Respiratory: normal breath sounds Gastrointestinal: soft Pelvic: normal external exam, normal adnexa, no cerv. motion tender, no masses; No lesions, No tender adnexa, No tender uterus; vaginal bleeding (SMALL AMOUNT OF BLOOD IN CANAL AT AT CERVICAL OS. NO CLOTS. ) Back: no CVA tenderness Extremities: normal inspection, normal capillary refill Neurologic/Psychiatric: no motor/sensory deficits, alert, normal mood/affect, oriented x 3 Skin: normal color, warm/dry, tattoos/piercings (MULTIPLE TATTOOS) Progress/Results/Core Measures Suspected Sepsis SIRS Temperature: Pulse: 95 Respiratory Rate: 16 Laboratory Tests 11/22/22 18:17: White Blood Count 8.1 Blood Pressure 170 /78 Mean: 108 Laboratory Tests 11/22/22 18:17: Creatinine 0.77, INR Comment 1.0, Platelet Count 337, Total Bilirubin 0.3 Results/Orders Lab Results Laboratory Tests Test 11/22/22 18:17 Range/Units White Blood Count 8.1 4.3-11.0 10^3/uL Red Blood Count 4.04 3.80-5.11 10^6/uL Hemoglobin 12.3 11.5-16.0 g/dL Hematocrit 37 35-52 % Mean Corpuscular Volume 91 80-99 fL Mean Corpuscular Hemoglobin 30 25-34 pg Mean Corpuscular Hemoglobin Concent 33 32-36 g/dL Red Cell Distribution Width 14.2 10.0-14.5 % Platelet Count 337 130-400 10^3/uL Mean Platelet Volume 10.3 9.0-12.2 fL Immature Granulocyte % (Auto) 1 % Neutrophils (%) (Auto) 66 42-75 % Lymphocytes (%) (Auto) 25 12-44 % Monocytes (%) (Auto) 6 0-12 % Eosinophils (%) (Auto) 2 0-10 % Basophils (%) (Auto) 1 0-10 % Neutrophils # (Auto) 5.3 1.8-7.8 10^3/uL Lymphocytes # (Auto) 2.0 1.0-4.0 10^3/uL Monocytes # (Auto) 0.5 0.0-1.0 10^3/uL Eosinophils # (Auto) 0.1 0.0-0.3 10^3/uL Basophils # (Auto) 0.1 0.0-0.1 10^3/uL Immature Granulocyte # (Auto) 0.0 0.0-0.1 10^3/uL Prothrombin Time 13.7 12.2-14.7 SEC INR Comment 1.0 0.8-1.4 Activated Partial Thromboplast Time 32 24-35 SEC Sodium Level 140 135-145 MMOL/L Potassium Level 3.5 L 3.6-5.0 MMOL/L Chloride Level 107 98-107 MMOL/L Carbon Dioxide Level 23 21-32 MMOL/L Anion Gap 10 5-14 MMOL/L Blood Urea Nitrogen 11 7-18 MG/DL Creatinine 0.77 0.60-1.30 MG/DL Estimat Glomerular Filtration Rate 96 BUN/Creatinine Ratio 14 Glucose Level 112 H 70-105 MG/DL Calcium Level 8.8 8.5-10.1 MG/DL Corrected Calcium 9.0 8.5-10.1 MG/DL Total Bilirubin 0.3 0.1-1.0 MG/DL Aspartate Amino Transf (AST/SGOT) 28 5-34 U/L Alanine Aminotransferase (ALT/SGPT) 50 0-55 U/L Alkaline Phosphatase 57 40-136 U/L Total Protein 7.5 6.4-8.2 GM/DL Albumin 3.7 3.2-4.5 GM/DL Serum Test, Qualitative NEGATIVE NEGATIVE My Orders Orders - RADHA HUERTAS DO Ed Iv/Invasive Line Start (11/22/22 18:22) Monitor-Rhythm Ecg Trace Only (11/22/22 18:22) Orthostatic Vital Signs (Adult (11/22/22 18:22) Cbc With Automated Diff (11/22/22 18:22) Comprehensive Metabolic Panel (11/22/22 18:22) Hcg,Qualitative Serum (11/22/22 18:22) Protime With Inr (11/22/22 18:22) Partial Thromboplastin Time (11/22/22 18:22) Vital Signs/I&O 11/22/22 11/22/22 11/22/22 17:49 19:00 19:20 Temp 36.7 Pulse 95 90 92 98 124 Resp 16 20 B/P (MAP) 170/78 (108) 131/88 (102) 175/95 160/114 (129) 195/139 (157) Pulse Ox 96 97 O2 Delivery Room Air Capillary Refill : Less Than 3 Seconds Blood Pressure Mean: 108 Progress Note : Progress Note VITALS STABLE NO DETERIORATION IN PT'S CONDITION DID HAVE SOME BLEEDING ON PADS ON ARRIVAL, AND CHANGED PADS AFTER PELVIC EXAM, BUT OTHERWISE DID NOT SATURATE ANY PADS DURING ER STAY REVIEWED TEST RESULTS, ANTICIPATED COURSE, MEDICATIONS PRESCRIBED, NEED FOR FOLLOW UP AND RETURN PRECAUTIONS DISCUSSED WITH PT. Departure Impression Primary Impression: Menometrorrhagia Disposition: HOME, SELF-CARE Condition: Stable Departure-Patient Inst. Decision time for Depature: 18:44 Referrals: [facility] (PCP) Primary Care Physician SUJIT WU DO (Family) Primary Care Physician Patient Instructions: Heavy Periods ED, Bleeding Between Periods Add. Discharge Instructions: HOME, REST LOTS OF CLEAR LIQUIDS FOLLOW UP WITH [facility] THIS WEEK FOR FURTHER CARE All discharge instructions reviewed with patient and/or family. Voiced understanding. Scripts Ondansetron (Ondansetron Odt) 8 Mg Tab.rapdis 8 MG PO Q6H, #10 TAB Prov: RADHA HUERTAS DO 11/22/22 Norethindrone (Ortho Micronor) 0.35 Mg Tablet 4 TAB PO DAILY for 5 Days, #1 EA Prov: RADHA HUERTAS DO 11/22/22 RADHA HUERTAS DO Nov 22, 2022 18:50
[2022-11-22 19:00] VITALS: BP_SYST 131; BP_SYST 160; BP_SYST 195; BP_DIAS 114; BP_DIAS 139; BP_DIAS 88
[2022-11-22 19:20] VITALS: BP 175/95
[2022-11-22 19:38] VITALS: BP_SYST 131; BP_SYST 160; BP_SYST 195; BP_DIAS 114; BP_DIAS 139; BP_DIAS 88
== END 2022-11-22 19:24 | disposition home or self-care (01) ==
LOC: EDUNIT# 17:30 → ER 17:34
DX: N92.1 Excessive and frequent menstruation with irregular cycle (principal); E66.9 Obesity, unspecified; Z68.44 Body mass index [BMI] 60.0-69.9, adult; Z32.02 Encounter for pregnancy test, result negative
CPT/HCPCS: 36415; 80053; 84703; 85025; 85610; 85730; 99282